=== PATIENT | male | born 1970 | race Asian ===

== ENCOUNTER 2023-11-15 01:00 | Inpatient (IN) | payer OTHER ==
[2023-11-15] MEDS: SODIUM CHLORIDE 2,449 ML IV ONE (03:21)
[2023-11-15 04:01] LABS: BASO % 0.3 % (0-2.0); EOS % 4.7 % (0-4.5); HEMATOCRIT 29.1 % (35.4-49); HEMOGLOBIN 9.5 GM/dL (11.7-16.9); LYMPH % 10.2 % (8-40); MCH 29.1 pg (25.7-33.7); MCHC 32.8 g/dl (32.0-35.9); MEAN CELL VOLUME 88.9 fl (80-96); MEAN PLT VOLUME 9.6 fl (7.5-11.1); MONO % 8.8 % (3.8-10.2); PLATELET COUNT 213 10^3/uL (134-434); RBC 3.27 M/mm3 (4.00-5.60); RDW 16.8 % (11.9-15.9); WHITE BLOOD COUNT 15.5 K/mm3 (4.0-10.0)
[2023-11-15 04:20] LABS: POTASSIUM 3.7 mmol/L (3.5-5.1)
[2023-11-15 04:22] LABS: BLOOD UREA NITROGEN 27.6 mg/dL (7-18); CALCIUM 8.9 mg/dL (8.5-10.1)
[2023-11-15 04:25] LABS: CREATININE 0.5 mg/dL (0.55-1.3)
[2023-11-15 04:27] LABS: BILIRUBIN,TOTAL 0.4 mg/dL (0.2-1); TOT PROT 7.5 g/dl (6.4-8.2)
[2023-11-15 04:29] LABS: INR 1.25 (0.83-1.09); PROTHROMBIN TIME (PATIENT) 14.5 SEC (9.7-13.0)
[2023-11-15 04:31] LABS: ACTIVATED PTT 26.8 SECONDS (25.2-36.5)
[2023-11-15] MEDS ORDERED: ACETAMINOPHEN INJECTION 100 ML IVPB ONE (06:54)
[2023-11-15] MEDS: ACETAMINOPHEN 1000 MG/100 ML BAG IVPB ONE (06:57)
[2023-11-15] MEDS ORDERED: CEFEPIME 2 GM/100 ML BAG IVPB ONE (07:21)
[2023-11-15] MEDS: CEFEPIME HCL 2 GM VIAL (RESTRICTED TO ID) IVPB ONE (07:25)
[2023-11-15] MEDS ORDERED: VANCOMYCIN 1 GRAM (PRE-DOCKED) 1,000 MG/250 ML BAG IVPB ONE (07:51)
[2023-11-15] MEDS: VANCOMYCIN 1,000 MG in DEXTROSE 5%-WATER - 250 ML IVPB ONE (08:20)
[2023-11-15] MEDS: levETIRAcetam 500 MG/5 ML INJECTION VIAL IVPB SCH (15:45)
[2023-11-15] MEDS ORDERED: IOHEXOL (OMNIPAQUE PO) 12 MG/ML - 500 ML BOTTLE PO ONE (16:56)
[2023-11-15] MEDS: INSULIN ASPART SLIDING SCALE (NOVOLOG) 1 VIAL SQ SCH (17:25)
[2023-11-15] MEDS: MINERAL OIL/PETROLATUM,WHITE 3.5 GM TUBE OD SCH (23:19)
[2023-11-15] MEDS: HEPARIN NA (PORCINE) 5,000 UNITS/ML 1ML VIAL SQ SCH (23:20)
[2023-11-15] MEDS: METOPROLOL TARTRATE 25 MG TABLET (FP) GT SCH (23:20)
[2023-11-16 06:40] VITALS: RESP 18
[2023-11-16] MEDS: ACETAMINOPHEN 650 MG/20.3 ML ORAL SOLUTION (CUPS) PEG PRN (06:40)
[2023-11-16 09:03] LABS: BASO % 0.2 % (0-2.0); EOS % 10.2 % (0-4.5); HEMATOCRIT 28.2 % (35.4-49); HEMOGLOBIN 9.1 GM/dL (11.7-16.9); LYMPH % 10.8 % (8-40); MCH 28.9 pg (25.7-33.7); MCHC 32.2 g/dl (32.0-35.9); MEAN CELL VOLUME 89.9 fl (80-96); MEAN PLT VOLUME 9.4 fl (7.5-11.1); MONO % 6.1 % (3.8-10.2); NEUT % 72.7 % (42.8-82.8); PLATELET COUNT 237 10^3/uL (134-434); RBC 3.14 M/mm3 (4.00-5.60); RDW 16.7 % (11.9-15.9); WHITE BLOOD COUNT 11.6 K/mm3 (4.0-10.0)
[2023-11-16 09:12] LABS: POTASSIUM 3.6 mmol/L (3.5-5.1)
[2023-11-16 09:14] LABS: ALBUMIN 1.8 g/dl (3.4-5.0); BLOOD UREA NITROGEN 18.8 mg/dL (7-18); CALCIUM 8.9 mg/dL (8.5-10.1); MAGNESIUM 2.1 mg/dL (1.8-2.4)
[2023-11-16 09:17] LABS: CREATININE 0.5 mg/dL (0.55-1.3)
[2023-11-16 09:19] LABS: BILIRUBIN,TOTAL 0.3 mg/dL (0.2-1); TOT PROT 6.8 g/dl (6.4-8.2)
[2023-11-16] MEDS: LACTOBACILLUS ACIDOPHILUS 1 TABLET PEG SCH (10:09)
[2023-11-16] MEDS: BACITRACIN ZINC 15 GM TUBE TOPICAL OINTMENT TP SCH (10:09)
[2023-11-16] MEDS: amLODIPine BESYLATE 5 MG TABLET (FP) PEG SCH (10:09)
[2023-11-16] MEDS: DOXAZOSIN MESYLATE 2 MG TABLET GT SCH (10:09)
[2023-11-16] MEDS: FAMOTIDINE 20 MG/50 ML IVPB 20 MG/50 ML MG IVPB SCH (10:09)
[2023-11-16] MEDS ORDERED: CEFEPIME HCL 2 GM VIAL (RESTRICTED TO ID) IVPB ONE (12:19)
[2023-11-16] MEDS: PIPERACILLIN/TAZOB 3.375 GM 3.375 GM in DEXTROSE 5%-WATER - 50 ML IVPB SCH (12:31)
[2023-11-16] MEDS: CEFEPIME 2 GM in DEXTROSE 5%-WATER 100 ML IVPB ONE (12:36)
[2023-11-16] MEDS ORDERED: VANCOMYCIN 1,000 MG in DEXTROSE 5%-WATER - 250 ML IVPB SCH (16:30)
[2023-11-16] MEDS: VANCOMYCIN/WATER FOR INJ (PEG) 1,000 MG/200 ML BAG IVPB SCH (17:43)
[2023-11-16] MEDS: CEFEPIME 2 GM in DEXTROSE 5%-WATER 100 ML IVPB SCH (21:25)
[2023-11-17 15:57] VITALS: BMI 29.7
[2023-11-18 10:32] VITALS: BP 125/85; PULSE 96; TEMP 98
== END 2023-11-18 10:33 | DRG 139 ==
LOC: JER 01:00 → JERBED 07:07 → J5S 12:10
PROVIDERS: ADMIT Internal Medicine; ATTEND Internal Medicine
PROC: 0D20XUZ Change Feeding Device in Upper Intestinal Tract, External Approach (ICD-10-PCS; principal; 2023-11-15)
DX: J18.9 Pneumonia, unspecified organism (principal); J96.10 Chronic respiratory failure, unspecified whether with hypoxia or hypercapnia; L89.152 Pressure ulcer of sacral region, stage 2; G93.1 Anoxic brain damage, not elsewhere classified; Z93.0 Tracheostomy status; K94.29 Other complications of gastrostomy; Z93.1 Gastrostomy status; E11.9 Type 2 diabetes mellitus without complications; G40.909 Epilepsy, unspecified, not intractable, without status epilepticus; D64.9 Anemia, unspecified; Y83.8 Other surgical procedures as the cause of abnormal reaction of the patient, or of later complication, without mention of misadventure at the time of the procedure; Z88.0 Allergy status to penicillin; D72.829 Elevated white blood cell count, unspecified
CPT/HCPCS: 0241U-QW; 36415; 71045-TC-FY; 74018-TC-FY; 80053; 82962; 83036; 83735; 85025; 85610; 85730; 87040; 87070; 87186; 87205; 87899; 93005; 93010; 99285-25; J0131; J1644

== ENCOUNTER 2024-05-19 21:17 | Inpatient (IN) | payer OTHER ==
[2024-05-19 23:11] LABS: BASO % 0.7 % (0-2.0); EOS % 5.9 % (0-4.5); LYMPH % 17.8 % (8-40); MCH 30.1 pg (25.7-33.7); MCHC 30.9 g/dl (32.0-35.9); MEAN CELL VOLUME 97.2 fl (80-96); MEAN PLT VOLUME 9.2 fl (7.5-11.1); NEUT % 71.6 % (42.8-82.8); PLATELET COUNT 313 10^3/uL (134-434); RBC 1.96 M/mm3 (4.00-5.60); RDW 20.4 % (11.9-15.9)
[2024-05-19 23:13] LABS: HEMOGLOBIN 5.9 GM/dL (11.7-16.9)
[2024-05-19 23:18] LABS: INR 1.02 (0.83-1.09); PROTHROMBIN TIME (PATIENT) 11.5 SEC (9.7-13.0)
[2024-05-19 23:21] LABS: ACTIVATED PTT 28.3 SECONDS (25.2-36.5)
[2024-05-19 23:36] LABS: POTASSIUM 4.9 mmol/L (3.5-5.1)
[2024-05-19 23:38] LABS: ALBUMIN 2.8 g/dl (3.4-5.0); CALCIUM 9.8 mg/dL (8.5-10.1)
[2024-05-19 23:39] LABS: BLOOD UREA NITROGEN 18.3 mg/dL (7-18)
[2024-05-19 23:42] LABS: CREATININE 0.6 mg/dL (0.55-1.3)
[2024-05-19 23:43] LABS: BILIRUBIN,TOTAL 0.3 mg/dL (0.2-1); TOT PROT 7.7 g/dl (6.4-8.2)
[2024-05-20] MEDS ORDERED: VANCOMYCIN 1 GRAM (PRE-DOCKED) 1,000 MG/250 ML BAG IVPB ONE (00:09)
[2024-05-20] MEDS ORDERED: CEFEPIME 2 GM/100 ML BAG IVPB ONE (00:10)
[2024-05-20] MEDS: CEFEPIME 2 GM in DEXTROSE 5%-WATER 100 ML IVPB ONE (00:18)
[2024-05-20] MEDS: VANCOMYCIN 1,000 MG in DEXTROSE 5%-WATER - 250 ML IVPB ONE (00:21)
[2024-05-20] MEDS: levETIRAcetam 500 MG/5 ML ORAL SOLUTION (UNIT-DOSE CUPS) PEG SCH (03:12)
[2024-05-20] MEDS ORDERED: AZTREONAM 2 GM VIAL (RESTRICTED TO ID) ONE ×2 (03:13→03:18)
[2024-05-20] MEDS ORDERED: DEXTROSE 50%-WATER 25 GM/50 ML DISP.SYRIN ONE (03:13)
[2024-05-20 03:18] LABS: EPI CELLS 2 /uL (0-25.1); HYALINE CASTS 0 /uL (0-3.1); URINE APPEARANCE CLOUDY; URINE BILIRUBIN NEGATIVE (NEGATIVE); URINE COLOR YELLOW; URINE GLUCOSE (UA) NEGATIVE (NEGATIVE); URINE KETONE NEGATIVE (NEGATIVE); URINE LEUK ESTERASE 3+ (NEGATIVE); URINE NITRITE POSITIVE (NEGATIVE); URINE PROTEIN 1+ (NEGATIVE); URINE RBC 11 /uL (0-23.9); URINE UROBILINOGEN 0.2 mg/dL (0.2-1.0); URINE WBC 251 /uL (0-25.8)
[2024-05-20] MEDS: DEXTROSE 50%-WATER - 25 GM/50 ML VIAL IVPUSH ONE (03:39)
[2024-05-20] MEDS: AZTREONAM 2 GM in DEXTROSE 5%-WATER 100 ML IVPB SCH ×2 (03:39→04:09)
[2024-05-20] MEDS: PANTOPRAZOLE SODIUM 40 MG VIAL IVPUSH ONE (03:39)
[2024-05-20] MEDS: DEXTROSE 50%-WATER 25 GM/50 ML DISP.SYRIN IVPUSH ONE (04:09)
[2024-05-20] MEDS: INSULIN ASPART SLIDING SCALE (NOVOLOG) 1 VIAL SQ SCH (06:58)
[2024-05-20 07:52] VITALS: BMI 31.5
[2024-05-20 08:49] LABS: HEMATOCRIT 21.8 % (35.4-49); HEMOGLOBIN 7.1 GM/dL (11.7-16.9); MCH 30.5 pg (25.7-33.7); MCHC 32.8 g/dl (32.0-35.9); MEAN CELL VOLUME 93.1 fl (80-96); MEAN PLT VOLUME 9.2 fl (7.5-11.1); PLATELET COUNT 227 10^3/uL (134-434); RBC 2.34 M/mm3 (4.00-5.60); RDW 17.7 % (11.9-15.9); WHITE BLOOD COUNT 6.3 K/mm3 (4.0-10.0)
[2024-05-20 09:14] LABS: POTASSIUM 4.2 mmol/L (3.5-5.1)
[2024-05-20 09:23] LABS: ALBUMIN 2.5 g/dl (3.4-5.0); BILIRUBIN,TOTAL 0.4 mg/dL (0.2-1); BLOOD UREA NITROGEN 17.3 mg/dL (7-18); CALCIUM 9.1 mg/dL (8.5-10.1); MAGNESIUM 1.8 mg/dL (1.8-2.4); TOT PROT 6.6 g/dl (6.4-8.2)
[2024-05-20 09:26] LABS: CREATININE 0.6 mg/dL (0.55-1.3); PHOSPHOROUS 3.1 mg/dL (2.5-4.9)
[2024-05-20] MEDS: DEXTROSE 5%-NORMAL SALINE 1,000 ML IV SCH (10:10)
[2024-05-20] MEDS: PANTOPRAZOLE SODIUM 40 MG VIAL IVPUSH SCH (10:11)
[2024-05-20] MEDS: CEFEPIME HCL 1 GM VIAL (RESTRICTED TO ID) IVPB SCH (17:04)
[2024-05-20] MEDS: CEFEPIME 1 GM in DEXTROSE 5%-WATER 100 ML IVPB SCH (18:24)
[2024-05-20 22:03] LABS: HEMOGLOBIN 8.1 GM/dL (11.7-16.9); MCHC 32.5 g/dl (32.0-35.9); MEAN CELL VOLUME 92.2 fl (80-96); PLATELET COUNT 249 10^3/uL (134-434); RBC 2.72 M/mm3 (4.00-5.60); RDW 17.1 % (11.9-15.9); WHITE BLOOD COUNT 8.3 K/mm3 (4.0-10.0)
[2024-05-21 01:43] VITALS: RESP 18
[2024-05-21 07:40] LABS: POTASSIUM 3.5 mmol/L (3.5-5.1)
[2024-05-21 07:46] LABS: BASO % 0.3 % (0-2.0); EOS % 6.6 % (0-4.5); HEMATOCRIT 25.5 % (35.4-49); HEMOGLOBIN 8.3 GM/dL (11.7-16.9); LYMPH % 25.4 % (8-40); MCH 30.3 pg (25.7-33.7); MCHC 32.5 g/dl (32.0-35.9); MEAN CELL VOLUME 93.3 fl (80-96); MEAN PLT VOLUME 9.1 fl (7.5-11.1); NEUT % 61.7 % (42.8-82.8); PLATELET COUNT 244 10^3/uL (134-434); RBC 2.73 M/mm3 (4.00-5.60); RDW 17.5 % (11.9-15.9); WHITE BLOOD COUNT 6.7 K/mm3 (4.0-10.0)
[2024-05-21 07:47] LABS: CALCIUM 8.8 mg/dL (8.5-10.1)
[2024-05-21 07:48] LABS: ALBUMIN 2.2 g/dl (3.4-5.0); BLOOD UREA NITROGEN 13.1 mg/dL (7-18)
[2024-05-21 07:52] LABS: BILIRUBIN,TOTAL 0.2 mg/dL (0.2-1); TOT PROT 6.4 g/dl (6.4-8.2)
[2024-05-21 07:55] LABS: CREATININE 0.7 mg/dL (0.55-1.3)
[2024-05-22 12:17] VITALS: BP 132/76; PULSE 66; TEMP 97.6
== END 2024-05-22 13:04 | DRG 663 ==
LOC: JER 21:17 → JERBED 23:26 → J4S 05-20 05:16
PROVIDERS: ADMIT Internal Medicine; ATTEND Internal Medicine
PROC: 30233N1 Transfusion of Nonautologous Red Blood Cells into Peripheral Vein, Percutaneous Approach (ICD-10-PCS; principal; 2024-05-20)
DX: D64.9 Anemia, unspecified (principal); G40.909 Epilepsy, unspecified, not intractable, without status epilepticus; E11.9 Type 2 diabetes mellitus without complications; I10 Essential (primary) hypertension; J18.9 Pneumonia, unspecified organism; A41.9 Sepsis, unspecified organism; G93.1 Anoxic brain damage, not elsewhere classified; N39.0 Urinary tract infection, site not specified; K92.2 Gastrointestinal hemorrhage, unspecified; R53.2 Functional quadriplegia; R68.0 Hypothermia, not associated with low environmental temperature; Z93.1 Gastrostomy status; Z93.0 Tracheostomy status; Z88.0 Allergy status to penicillin
CPT/HCPCS: 36415; 36430; 71045-TC-FY; 74174-TC; 80053; 81003; 82272; 82607; 82746; 82962; 83735; 84100; 85025; 85027; 85610; 85730; 86850; 86900; 86901; 86922; 87040; 87070; 87086; 87184; 87186; 87205; 93005; 93010; 99285-25; P9038; P9058; Q9967